=== PATIENT | female | born 1990 | race African-American/Black ===

== ENCOUNTER 2017-09-09 13:01 | Observation (INO) | payer MEDICARE, MEDICAID ==
[~2017-09-09] VITALS: Ht 175.3 cm; Wt 64.0 kg
[2017-09-09 14:20] LABS: CLARITY URINE CLEAR (CLEAR); COLOR URINE YELLOW (YELLOW); KETONES URINE NEGATIVE (NEGATIVE); LEUKOCYTE ESTERASE URINE TRACE (NEGATIVE); NITRITE URINE NEGATIVE (NEGATIVE); OCCULT BLOOD URINE NEGATIVE (NEGATIVE); PH URINE 5.5 (4.5-8.0); PROTEIN URINE NEGATIVE (NEGATIVE); UROBILINOGEN URINE 0.2 E.U./dL (0.2-1.0)
== END 2017-09-09 15:43 | disposition home or self-care (01) ==
LOC: L&D 13:01
PROVIDERS: ADMIT Obstetrics & Gynecology; ATTEND Obstetrics & Gynecology
DX: O26.893 Other specified pregnancy related conditions, third trimester (principal); R10.30 Lower abdominal pain, unspecified; Z3A.34 34 weeks gestation of pregnancy
CPT/HCPCS: 76805; 81003; 99281; G0378

== ENCOUNTER 2017-09-09 20:14 | Inpatient (IN) | payer MEDICARE, MEDICAID ==
[~2017-09-09] VITALS: Ht 175.3 cm; Wt 64.0 kg
[2017-09-09] MEDS ORDERED: DEXT 5%/LR + PITOCIN 20UNITS/L 1,000 ML IV ONE (20:43)
[2017-09-09] MEDS ORDERED: DEXT 5%/LR + PITOCIN 20UNITS/L 1,000 ML IV SCH ×2 (21:09→21:40)
[2017-09-09] MEDS ORDERED: METHYLERGONOVINE MALEATE 0.2 MG/ML IM PRN (21:15)
[2017-09-09] MEDS ORDERED: LACTATED RINGERS 1,000 ML IV SCH (21:18)
[2017-09-09] MEDS ORDERED: BENZOCAINE/LANOLIN/ALOE VERA SPRAY TOP PRN (21:45)
[2017-09-09] MEDS ORDERED: GLYCERIN/WITCH HAZEL LEAF MEDICATED PAD TOP PRN (21:45)
[2017-09-09] MEDS ORDERED: HEMORRHOIDAL SUPP PR PRN (21:45)
[2017-09-09] MEDS ORDERED: BISACODYL 10MG SUPP PR PRN (21:45)
[2017-09-09] MEDS ORDERED: IBUPROFEN 400MG TABLET PO PRN (21:45)
[2017-09-09 22:50] VITALS: BP 110/60
[2017-09-09 23:20] VITALS: BP 105/70
[2017-09-09 23:46] LABS: BASOPHILS % 0.5 % (0.0-2.0); EOSINOPHILS % 0.4 % (0.0-5.0); HEMATOCRIT. 30.9 % (36.0-48.0); HEMOGLOBIN. 10.6 g/dL (12.0-16.0); LYMPHOCYTES % 21.1 % (20.0-50.0); MEAN CORPUSCULAR HEMOGLOBIN 30.4 pg (28.0-32.0); MEAN CORPUSCULAR VOLUME 88.8 fL (81.0-99.0); MEAN PLATELET VOLUME 8.9 fl (7.4-10.4); MONOCYTES % 8.3 % (2.0-8.0); NEUTROPHILS % 69.7 % (40.0-76.0); PLATELET 211 x1000/uL (130-400); RED BLOOD CELL COUNT 3.48 mill/uL (4.2-5.4)
[2017-09-09 23:50] VITALS: BP 106/72
[2017-09-09 23:54] LABS: PARTIAL THROMBOPLASTIN TIME 28.9 sec (23.4-31.0); PROTHROMBIN TIME 10.7 sec (9.4-11.6)
[2017-09-09 23:54] LABS: CLARITY URINE CLOUDY (CLEAR); COLOR URINE RED (YELLOW); KETONES URINE 2+ (NEGATIVE); LEUKOCYTE ESTERASE URINE 1+ (NEGATIVE); NITRITE URINE NEGATIVE (NEGATIVE); OCCULT BLOOD URINE 3+ (NEGATIVE); PH URINE 6.5 (4.5-8.0); PROTEIN URINE 1+ (NEGATIVE); SPECIFIC GRAVITY URINE 1.011 (1.005-1.030); UROBILINOGEN URINE 0.2 E.U./dL (0.2-1.0)
[2017-09-10 00:34] LABS: *AMPHETAMINES SCREEN URINE NEGATIVE (NEGATIVE); *BARBITURATES SCREEN URINE NEGATIVE (NEGATIVE); *BENZODIAZEPINES SCREEN URINE NEGATIVE (NEGATIVE); *COCAINE SCREEN URINE NEGATIVE (NEGATIVE); METHADONE URINE SCREEN NEGATIVE (NEGATIVE); OPIATES URINE SCREEN NEGATIVE (NEGATIVE); PHENCYCLIDINE URINE SCREEN NEGATIVE (NEGATIVE)
[2017-09-10] MEDS: IBUPROFEN 800MG TABLET PO PRN ×4 (00:36→22:09)
[2017-09-10 00:40] LABS: CANNABINOID URINE SCREEN PRESUMTIVE POSITIVE (NEGATIVE)
[2017-09-10 07:16] LABS: BASOPHILS % 0.5 % (0.0-2.0); EOSINOPHILS % 0.4 % (0.0-5.0); HEMATOCRIT. 30.1 % (36.0-48.0); HEMOGLOBIN. 10.1 g/dL (12.0-16.0); LYMPHOCYTES % 16.7 % (20.0-50.0); MEAN CORPUSCULAR HEMOGLOBIN 29.8 pg (28.0-32.0); MEAN CORPUSCULAR VOLUME 88.8 fL (81.0-99.0); MEAN PLATELET VOLUME 8.7 fl (7.4-10.4); MONOCYTES % 7.7 % (2.0-8.0); NEUTROPHILS % 74.7 % (40.0-76.0); PLATELET 194 x1000/uL (130-400); RED BLOOD CELL COUNT 3.39 mill/uL (4.2-5.4); RED CELL DISTRIBUTION WIDTH 13.9 % (11.6-14.6)
[2017-09-10 08:21] VITALS: BP 104/68
[2017-09-10] MEDS: MAGNESIUM/ALUMINUM HYDROXIDE/SIMETHICONE 30ML UDC PO SCH ×4 (09:44→22:08)
[2017-09-10] MEDS: SIMETHICONE 80MG TABLET CHEW PO SCH ×4 (09:45→22:08)
[2017-09-10] MEDS: PRENATAL VIT/FE FUMARATE/FA TABLET PO SCH (09:47)
[2017-09-10 11:00] LABS: RUBELLA IGG 207.7 IU/mL (4.99-10)
[2017-09-10 11:01] LABS: HEPATITIS B SURFACE ANTIGEN NEGATIVE
[2017-09-10] MEDS: FERROUS SULFATE 325MG TABLET PO SCH ×2 (12:47→18:13)
[2017-09-10 15:55] VITALS: BP 106/69
[2017-09-10 19:05] VITALS: BP 96/64
[2017-09-10] MEDS ORDERED: DOCUSATE SODIUM 100MG CAPSULE PO SCH (21:00)
[2017-09-11] VITALS: BP 102/69
[2017-09-11 06:00] VITALS: BP 105/69
[2017-09-11 07:33] VITALS: BP 93/62
[2017-09-11] MEDS: MAGNESIUM/ALUMINUM HYDROXIDE/SIMETHICONE 30ML UDC PO SCH (08:27)
[2017-09-11] MEDS: FERROUS SULFATE 325MG TABLET PO SCH (08:28)
[2017-09-11] MEDS: IBUPROFEN 800MG TABLET PO PRN (08:28)
[2017-09-11] MEDS: SIMETHICONE 80MG TABLET CHEW PO SCH (08:28)
[2017-09-11] MEDS: PRENATAL VIT/FE FUMARATE/FA TABLET PO SCH (08:28)
[2017-09-17 04:12] LABS: CANNABINOID CONFIRMATION URINE Positive (.)
== END 2017-09-11 12:20 | disposition home or self-care (01) | DRG 776 ==
LOC: ER 20:49 → OBSVTOIN 20:52 → L&D 20:52 → 7EST PP/OB 22:40
PROVIDERS: ADMIT Obstetrics & Gynecology; ATTEND Obstetrics & Gynecology
DX: Z39.0 Encounter for care and examination of mother immediately after delivery (principal)
CPT/HCPCS: 36415; 80305; 80349; 81003; 85025; 85610; 85730; 86592; 86703; 86762; 86850; 86900; 87340; G0378; J2590; J7120

== ENCOUNTER 2021-12-10 01:03 | Emergency (ER) | payer MEDICAID, MEDICARE ==
[~2021-12-10] VITALS: Ht 175.3 cm; Wt 78.2 kg
[2021-12-10 01:05] VITALS: BP 111/77
[2021-12-10] MEDS ORDERED: BUPIVACAINE HCL/PF 0.25% (2.5MG/ML) 10ML INFIL ONE (05:15)
[2021-12-10] MEDS ORDERED: IBUP-2028 MT (06:04)
[2021-12-10] MEDS ORDERED: TOPUD PO (06:04)
== END 2021-12-10 06:17 | disposition home or self-care (01) ==
LOC: ER 01:14
DX: M54.81 Occipital neuralgia (principal)
CPT/HCPCS: 99282; J3490